=== PATIENT | male | born 1980 | race Caucasian/White ===

== ENCOUNTER 2017-08-12 18:39 | Emergency (ER) | payer OTHER ==
[~2017-08-12] VITALS: Ht 170.2 cm; Wt 104.3 kg
[2017-08-12 19:13] LABS: ABSOLUTE EOSINOPHILS 0.1 thou/uL (0.0-0.7); ABSOLUTE LYMPHOCYTES 2.5 thou/uL (0.8-5.3); ABSOLUTE MONOCYTES 0.7 thou/uL (0.0-1.2); ABSOLUTE NEUTROPHILS 4.5 thou/uL (1.6-8.1); BASOPHILS 0.6 %; EOSINOPHILS 1.2 %; HEMATOCRIT 44.5 % (42.0-52.0); HEMOGLOBIN 15.1 gm/dL (14.0-18.0); LYMPHOCYTES 32.3 %; MCH 27.5 pg (26.0-34.0); MCV 80.9 fL (80.0-100.0); MONOCYTES 8.4 %; MPV 8.2 fl. (7.2-11.1); NUCLEATED RBCS 0 /100WBC; PLATELET COUNT* 231 thou/uL (150-400); POLYS 57.5 %; WBC 7.8 thou/uL (4.0-11.0)
[2017-08-12 19:20] LABS: CALCIUM 8.9 mg/dL (8.5-10.1); CREATININE 0.8 mg/dL (0.6-1.3); POTASSIUM 3.4 mmol/L (3.5-5.1)
[2017-08-12 19:25] LABS: ALBUMIN 4.4 g/dL (3.4-5.0); TOTAL BILIRUBIN 0.3 mg/dL (<0.1-1.0)
[2017-08-12 20:20] LABS: URINE BILIRUBIN NEGATIVE (Negative); URINE BLOOD NEGATIVE (Negative); URINE CLARITY CLEAR; URINE COLOR YELLOW; URINE GLUCOSE-RANDOM NEGATIVE (Negative); URINE KETONES NEGATIVE (Negative); URINE LEUKOCYTES NEGATIVE (Negative); URINE NITRITE NEGATIVE (Negative); URINE PROTEIN NEGATIVE (Negative); URINE UROBILINOGEN 0.2 E.U./dl (0.2-1.0)
[2017-08-12 20:30] LABS: AMP/METHAMP Negative (Negative); BARBITURATES Negative (Negative); BENZODIAZEPINES Negative (Negative); COCAINE Negative (Negative); METHADONE Negative (Negative); OPIATES Negative (Negative); PCP Negative (Negative); THC Negative (Negative)
[2017-08-12 20:59] LABS: INFLUENZA A ANTIGEN None Detected (None Detect); INFLUENZA B ANTIGEN None Detected (None Detect)
[2017-08-12 21:21] VITALS: BP 165/93
--- NOTE | 2017-08-14 12:58 | EKG ---
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1980 Requested By: Stephanie Solis Order Number: [id number] Reading MD: Uche Samano Measurements Intervals [place] Rate: 121 P: 72 UT: 178 QRS: 26 QRSD: 95 T: -5 QT: 320 QTc: 454 Interpretive Statements Sinus tachycardia Probable left atrial enlargement Borderline repol abnrm, anterolateral leads No previous ECG available for comparison Electronically Signed On 08-14-2017 12:58:37 CDT by Uche Samano [email or web address] <ELECTRONICALLY SIGNED> By: Stepan Samano MD, [facility] 08/14/17 [id number] Stepan Samano MD, FACC /EPI
== END 2017-08-12 21:22 | disposition home or self-care (01) ==
LOC: M.ERS 18:39
PROVIDERS: Physician Assistant
DX: B34.9 Viral infection, unspecified (principal)